=== PATIENT | female | born 1995 | race Caucasian/White ===

== ENCOUNTER 2023-01-28 05:15 | Emergency (ER) | payer OTHER ==
[~2023-01-28] VITALS: Ht 167.6 cm; Wt 83.5 kg
[2023-01-28] MEDS ORDERED: PRENATAL TABLE1 EAC2 PO (05:44)
[2023-01-28 06:11] LABS: Source, Urine Clean Catch
[2023-01-28 06:15] LABS: Appearance, Urine Clear (Clear); Bilirubin, Urine Neg (Neg); Blood, Urine 5+ (Neg); Color, Urine Yellow (P-Yellow); Glucose Qualitative, Urine Neg (Neg); Ketones, Urine Neg (Neg); Leukocyte Esterase, Urine Neg (Neg); Nitrite, Urine Neg (Neg); Protein, Urine Neg (Neg); Specific Gravity, Urine 1.015 (1.003-1.022); Urobilinogen, Urine NORM (Normal)
[2023-01-28 06:18] LABS: BASOPHILS ABSOLUTE AUTO 0.08 K/mm3 (0.00-0.23); BASOPHILS PERCENT AUTO 1 % (0-2); EOSINOPHILS ABSOLUTE AUTO 0.15 K/mm3 (0.00-0.68); EOSINOPHILS PERCENT AUTO 2 % (0-6); Hematocrit 41.2 % (33.0-51.0); Hemoglobin 14.3 g/dL (11.5-16.0); IMMATURE GRAN ABSOLUTE AUTO 0.01 K/mm3 (0.00-0.10); IMMATURE GRAN PERCENT AUTO 0 % (0-1); LYMPHOCYTES ABSOLUTE AUTO 1.55 K/mm3 (0.84-5.20); LYMPHOCYTES PERCENT AUTO 19 % (21-46); MONOCYTES ABSOLUTE AUTO 0.64 K/mm3 (0.16-1.47); MONOCYTES PERCENT AUTO 8 % (4-13); Mean Corpuscular HGB Conc 34.7 g/dL (31.5-36.5); Mean Corpuscular Volume 89 fL (80-100); NEUTROPHILS ABSOLUTE AUTO 5.64 K/mm3 (1.96-9.15); NEUTROPHILS PERCENT AUTO 70 % (41-73); Platelet Count 321 K/mm3 (150-400); RDW Coefficient Variation 11.8 % (11.7-14.2); Red Blood Cell Count 4.62 M/mm3 (3.80-5.20); White Blood Cell Count 8.07 K/mm3 (4.00-11.30)
[2023-01-28 06:33] LABS: Red Blood Cells, Urine 50-100 /hpf (0-2); White Blood Cells, Urine 0-2 /hpf (0-5)
[2023-01-28 06:34] LABS: Squamous Epithelial Cells Rare /hpf (Few)
[2023-01-28 06:35] LABS: Bacteria Few /hpf
[2023-01-28 07:04] LABS: Albumin, Blood 3.7 g/dL (3.4-5.0); Albumin/Globulin Ratio 1.1 (0.8-1.8); Bilirubin, Total 0.2 mg/dL (0.1-1.0); Bun/Creatinine Ratio 15.3 (12.0-20.0); Calcium, Blood 8.3 mg/dL (8.5-10.1); Creatinine, Blood 0.72 mg/dL (0.40-1.00); Globulin, Blood 3.4 g/dL (2.2-4.0); Potassium, Blood 3.8 mmol/L (3.5-5.5); Total Protein, Blood 7.1 g/dL (6.4-8.2)
[2023-01-28 08:18] VITALS: BP 131/77
== END 2023-01-28 08:19 | disposition home or self-care (01) ==
LOC: ER 05:15
PROVIDERS: Student in an Organized Health Care Education/Training Program
DX: O20.9 Hemorrhage in early pregnancy, unspecified (principal); Z3A.01 Less than 8 weeks gestation of pregnancy; Z79.899 Other long term (current) drug therapy
CPT/HCPCS: 76801; 76817; 80053; 81001; 84702; 85025; 86900; 86901; 96360; 99284-25; A9270; J7030

== ENCOUNTER → 2024-03-10 | Outpatient (CLI) | payer OTHER ==
[~2024-03-10] MED LIST: PRENATAL TABLE1 EAC2 PO
== END | disposition home or self-care (01) ==
LOC: LAB 16:15 → LAB SHORT 16:15
DX: Z34.93 Encounter for supervision of normal pregnancy, unspecified, third trimester (principal)
CPT/HCPCS: 87081; 87150

== ENCOUNTER 2024-04-15 04:55 | Inpatient (IN) | payer BC ==
[2024-04-15] VITALS (19 sets, daily range): BP systolic 112–145; BP diastolic 68–90
[~2024-04-15] VITALS: Ht 167.6 cm; Wt 115.0 kg
[2024-04-15] MEDS ORDERED: Morphine Sulfate 10 MG/ML 1MLSYR IM ONE (06:40)
[2024-04-15] MEDS ORDERED: Promethazine HCl 25 MG Tab PO ONE (06:40)
[2024-04-15] MEDS ORDERED: FentaNYL 2mcg/ml-Bup 0.1% Epd 250 ML EPI PRN (11:05)
[2024-04-15] MEDS ORDERED: Calcium Carbonate 500 MG Tab Chew PO SCH (11:05)
[2024-04-15] MEDS ORDERED: Lactated Ringer's 1,000 ML IV SCH ×3 (11:05→22:05)
[2024-04-15] MEDS ORDERED: Oxytocin 10 Unit / ML Vial IM PRN (11:05)
[2024-04-15] MEDS ORDERED: Tranexamic Acid 100 ML IV SCH (11:05)
[2024-04-15] MEDS ORDERED: Methylergonovine Maleate 0.2MG / ML 1ML Amp IM PRN ×2 (11:05→22:05)
[2024-04-15] MEDS ORDERED: Misoprostol 200 MCG Tab BC PRN (11:05)
[2024-04-15] MEDS ORDERED: ePHEDrine Sulfate 50 MG/ML 1ML Injection XX PRN (11:05)
[2024-04-15] MEDS ORDERED: Ondansetron HCl 2 MG / ML 2ML Vial IV PRN ×2 (11:05→12:20)
[2024-04-15] MEDS ORDERED: Lactated Ringer's 1,000 ML IV PRN (11:05)
[2024-04-15] MEDS ORDERED: Carboprost Tromethamine 250 MCG/ML 1ML Amp IM PRN ×2 (11:05→22:05)
[2024-04-15] MEDS ORDERED: Acetaminophen 500 MG Tab PO PRN ×2 (11:05→12:20)
[2024-04-15] MEDS ORDERED: OXYTOCIN/RINGER'S LACTATE 500 ML IV PRN (11:05)
[2024-04-15] MEDS ORDERED: Misoprostol 200 MCG Tab PR PRN ×2 (11:05→22:10)
[2024-04-15] MEDS ORDERED: PRED20 PO (11:22)
[2024-04-15 12:07] LABS: BASOPHILS ABSOLUTE AUTO 0.04 K/mm3 (0.00-0.23); BASOPHILS PERCENT AUTO 0 % (0-2); EOSINOPHILS ABSOLUTE AUTO 0.09 K/mm3 (0.00-0.68); EOSINOPHILS PERCENT AUTO 1 % (0-6); Hematocrit 38.8 % (33.0-51.0); Hemoglobin 13.7 g/dL (11.5-16.0); IMMATURE GRAN ABSOLUTE AUTO 0.07 K/mm3 (0.00-0.10); IMMATURE GRAN PERCENT AUTO 1 % (0-1); LYMPHOCYTES ABSOLUTE AUTO 1.56 K/mm3 (0.84-5.20); LYMPHOCYTES PERCENT AUTO 13 % (21-46); MONOCYTES ABSOLUTE AUTO 0.98 K/mm3 (0.16-1.47); MONOCYTES PERCENT AUTO 8 % (4-13); Mean Corpuscular HGB 30.3 pg (26.0-34.0); Mean Corpuscular HGB Conc 35.3 g/dL (31.5-36.5); Mean Corpuscular Volume 86 fL (80-100); Mean Platelet Volume 9.7 fL (9.1-12.4); NEUTROPHILS ABSOLUTE AUTO 9.42 K/mm3 (1.96-9.15); NEUTROPHILS PERCENT AUTO 78 % (41-73); Platelet Count 273 K/mm3 (150-400); RDW Coefficient Variation 13.4 % (11.7-14.2); RDW Standard Deviation 41.3 fL (35.1-46.3); Red Blood Cell Count 4.52 M/mm3 (3.80-5.20); White Blood Cell Count 12.16 K/mm3 (4.00-11.30)
[2024-04-15] MEDS ORDERED: FentaNYL Citrate 50 MCG/ML 2 ML Injection ONE (12:08)
[2024-04-15] MEDS ORDERED: Calcium Carbonate 500 MG Tab Chew PO PRN (12:20)
[2024-04-15] MEDS ORDERED: FentaNYL Citrate 50 MCG/ML 2 ML Injection IV PRN (12:20)
[2024-04-15] MEDS ORDERED: OXYTOCIN/RINGER'S LACTATE 500 ML IV SCH ×2 (15:00→22:10)
[2024-04-15 21:59] LABS: PCO2 Cord - Arterial 69.6 mmHg (40-50); PO2 Cord - Arterial 24.4 mmHg (16-20); pH Cord - Arterial 7.02 (7.28-7.35)
[2024-04-15 22:03] LABS: PCO2 Cord - Venous 40.5 mmHg (40-50); PO2 Cord - Venous 38.3 mmHg (28-32); pH Umbilical Cord - Venous 7.17 (7.26-7.35)
[2024-04-15] MEDS ORDERED: Witch Hazel/Glycerin PADS TOP PRN (22:05)
[2024-04-15] MEDS ORDERED: Ibuprofen 400 MG Tab PO PRN (22:05)
[2024-04-15] MEDS ORDERED: Benzocaine Topical Anesthetic Spray 60GM TOP PRN (22:05)
[2024-04-15] MEDS ORDERED: Ketorolac Tromethamine 30mg Vial IV PRN (22:05)
[2024-04-15] MEDS ORDERED: FLU VACC TS2024-25(6MOS UP)/PF 45 MCG/0.5 ML SYRINGE IM ONE (22:10)
[2024-04-15] MEDS ORDERED: Docusate Sodium 100 MG Cap PO PRN (22:10)
[2024-04-15] MEDS ORDERED: Acetaminophen 325 MG TABLET PO PRN (22:10)
[2024-04-15] MEDS ORDERED: Lanolin Cream TOP PRN (22:10)
[2024-04-16 03:02] VITALS: BP 113/58
[2024-04-16] MEDS ORDERED: Prenatal Vit/FE Fumarate/FA 1 Tab PO SCH (09:00)
[2024-04-16 09:01] VITALS: BP 111/59
[2024-04-16 11:57] VITALS: BP 139/70
[2024-04-16] MEDS ORDERED: OxyCODONE HCL 5 MG TAB PO PRN (14:55)
[2024-04-16 16:30] VITALS: BP 128/71
[2024-04-16 19:35] VITALS: BP 123/72
[2024-04-17 00:34] VITALS: BP 119/64
[2024-04-17 05:21] VITALS: BP 113/59
[2024-04-17] MEDS ORDERED: IBUP800 PO (07:37)
[2024-04-17] MEDS ORDERED: DOCU100 PO (07:37)
[2024-04-17 07:42] VITALS: BP 130/63
--- NOTE | 2024-04-17 10:07 | NUR ---
dc instructions reviewed with parents. questions answered and verbalize understanding. will follow up saturday 04/22 @ 900. will also make appt with [facility] for f/u
== END 2024-04-17 10:20 | disposition home or self-care (01) | DRG 806 ==
LOC: OBS 04:55 → BC 04:55 → OBS 10:46 → BC 19:24
PROVIDERS: Obstetrics & Gynecology; ADMIT Advanced Practice Midwife
PROC: 3E0R3BZ Introduction of Anesthetic Agent into Spinal Canal, Percutaneous Approach (ICD-10-PCS; principal; 2024-04-15)
PROC: 00HU33Z Insertion of Infusion Device into Spinal Canal, Percutaneous Approach (ICD-10-PCS; principal; 2024-04-15)
PROC: 0UQGXZZ Repair Vagina, External Approach (ICD-10-PCS; principal; 2024-04-15)
PROC: 10E0XZZ Delivery of Products of Conception, External Approach (ICD-10-PCS; principal; 2024-04-15)
DX: O48.0 Post-term pregnancy (principal); O71.4 Obstetric high vaginal laceration alone; Z37.0 Single live birth; Z3A.40 40 weeks gestation of pregnancy; O26.86 Pruritic urticarial papules and plaques of pregnancy (PUPPP); O99.214 Obesity complicating childbirth; O77.0 Labor and delivery complicated by meconium in amniotic fluid; O69.81X0 Labor and delivery complicated by cord around neck, without compression, not applicable or unspecified; Z28.21 Immunization not carried out because of patient refusal
CPT/HCPCS: 51702; 59025; 81003; 82803; 85025; 86850; 86900; 86901; 86923; 99214; A9270; C1751; J1885; J2270; J2405; J3010; J7120